=== PATIENT | female | born 1975 | race Caucasian/White ===

== ENCOUNTER → 2017-06-01 | Outpatient (CLI) | payer BC ==
[~2017-06-01] MED LIST: KEPPRA500 MG PO
--- NOTE | ~2017-06-01 | MY30 ---
[facility] A Service of [facility] RADIOLOGY TEXT RESULTS PATIENT: HOWARD MILLS LOCATION: [facility] : 75 UNIT #: [id number] AGE: [address]: Octavio Simms MD SEX: F ORDER DR: [id number] [address] [id number] O MR#: [id number] Acc #: [id number] NAME: HOWARD MILLS : 1975 SEX: F STUDY DATE/TIME: 06/01/2017 15:15 UNIT: [facility] ROOM: STUDY DESCRIPTION: MY SCREEN BRIT BILAT DIGITAL Attending Physician: Octavio Simms M.D. Referring Physician: Octavio Simms M.D. Ordering Physician: Octavio Simms M.D. Primary Care Physician: Octavio Simms M.D. MEDICAL IMAGING REPORT This report is preliminary unless electronic signature is present. EXAM Bilateral digital screening mammogram with CAD DATE 06/01/2017 HISTORY No personal or family history of breast cancer or current complaints. COMPARISON None. This is the patient's baseline screening study. FINDINGS CC and MLO views were obtained of each breast utilizing digital technique and reviewed with an FDA-approved CAD device. Scattered fibroglandular densities are present bilaterally. 6-7 mm partially obscured nodule in the 6 o'clock axis left breast, along the inframammary fold approximately 8 cm deep to the nipple, is seen. No architectural distortion. No suspicious clustered microcalcifications. IMPRESSION 1. BIRADS 0. Additional imaging required. Approximately 6 cm partially obscured nodule along the 6 o'clock axis left breast posterior third is demonstrated. No comparison studies at this institution. Recommend spot compression in the CC and MLO planes, and if the density persists, diagnostic left breast ultrasound. Patients over the age of 40 are entered into a reminder system with target due date for the next mammogram. A result letter will also be sent to the patient. BIRADS: 0 Need Additional Imaging Evaluation and/or Prior Mammograms For ST[facility]. [facility] A Service of [facility] RADIOLOGY TEXT RESULTS PATIENT: HOWARD MILLS LOCATION: [facility] : 75 UNIT #: [id number] AGE: [address]: Octavio Simms MD SEX: F ORDER DR: Evaluation Dictated by... Geena Walden M.D. THIS IS AN ELECTRONICALLY VERIFIED REPORT Geena Walden M.D. at 06/06/2017 3:26 PM [facility]/saul TD: 06/02/2017 11:51 JOB #: [id number] MEDICAL IMAGING REPORT Page 1 of 1
== END | disposition home or self-care (01) ==
LOC: SMAM 14:38
DX: Z12.31 Encounter for screening mammogram for malignant neoplasm of breast (principal); N63 Unspecified lump in breast
CPT/HCPCS: G0202